=== PATIENT | male | born 1980 | race Caucasian/White ===

== ENCOUNTER 2017-07-29 21:39 | Emergency (ER) | payer SELFPAY ==
[~2017-07-29] VITALS: Ht 190.5 cm; Wt 127.0 kg
[~2017-07-29 21:39] MED LIST: HCT25T PO
[2017-07-29] MEDS ORDERED: TETANUS,DIPTH,PERTUSS P/F (BOOSTRIX) 0.5 ML VIAL IM STA (22:11)
[2017-07-29] MEDS ORDERED: RX-MUPIROCIN (BACTROBAN) 2% OINT 22 GM TUBE TOP STA (22:13)
[2017-07-29] MEDS ORDERED: AUGMENTIN 875 MG TAB (AMOXICILLIN/CLAVULANATE) PO SCH (22:15)
[2017-07-29] MEDS ORDERED: FLUORESCEIN (FLUOR-I-STRIPS) 1 MG STRP ONE (22:23)
[2017-07-29] MEDS ORDERED: TETRACAINE 0.5% OPHTH SOLN 4 ML BTL (SINGLE DOSE ONLY) ONE (22:23)
[2017-07-29] MEDS ORDERED: BSS 15 ML ONE (22:24)
[2017-07-29] MEDS ORDERED: PHEN37.53 PO (22:35)
[2017-07-29] MEDS ORDERED: TOPI50TA13 (22:35)
[2017-07-29] MEDS ORDERED: METO-395 (22:35)
[2017-07-29] MEDS ORDERED: OMEP20CA12 (22:35)
[2017-07-29] MEDS ORDERED: RX-CIPROFLOXACIN (CILOXAN) 0.3% OP SOLN 2.5 ML OP STA (22:40)
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
[2017-07-29] MEDS ORDERED: AMOX-358 PO (22:51)
[2017-07-29] MEDS ORDERED: MUPI1OIN6 TP (22:51)
[2017-07-29 23:00] VITALS: BP 125/96
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
--- OUTSIDE RECORDS SUMMARY | 2017-07-30 09:51 | XMS REPORT ---
Author Author EVA CAO Organization [employer] Address Unknown Phone Unavailable Care Team Providers Care Employee Relations Administrator Name Role Phone EVA CAO CP Unavailable Allergies No Known Allergies Problems Problem Type Condition Code Onset Dates Condition Status Problem Obese E66.9 Active Problem Family history of diabetes mellitus Z83.3 Active Problem HTN (hypertension) I10 Active Problem GERD (gastroesophageal reflux disease) 530.81 Active Medications Medication Code System Code Instructions Start Date End Date Status Dosage Omeprazole [facility] 83109274198 20 MG Orally Once a day 1 tablet Results No Known Results Summary Purpose [employer] Submission
--- OUTSIDE RECORDS SUMMARY | 2017-07-30 09:51 | XMS REPORT ---
Author EVA Couch Organization [employer] Address Unknown Phone Unavailable Care Team Providers Care Edi Coordinator Name Role Phone EVA CAO CP Unavailable Allergies, Adverse Reactions, Alerts Substance Reaction Event Type Chantix 1 Mg Tablet facial swelling Non Drug Allergy Problems Problem Type Condition Code Onset Dates Condition Status Problem Obese E66.9 Active Problem Family history of diabetes mellitus Z83.3 Active Problem HTN (hypertension) I10 Active Problem GERD (gastroesophageal reflux disease) 530.81 Active Assessment Morbid obesity due to excess calories E66.01 Active Medications Medication Code System Code Instructions Start Date End Date Status Dosage Metformin HCl [facility] [address]-20 500 MG Orally 3 times a day September 19, 2015 1 tablet Omeprazole [facility] 90275388031 20 MG Orally Once a day 1 tablet Metoprolol Succinate ER [facility] [address]-03 100 MG Orally Once a day 1 tablet Procedures Procedure Coding System Code Date Office Visit, Est Pt., Level 3 CPT-4 68945 Dec 09, 2015 Vital Signs Date/Time: Dec 09, 2015 Cardiac Monitoring Heart Rate 92 bpm Weight 381 lbs Height 73 in BMI 50.26 Index Blood Pressure Diastolic 90 mmHg Blood Pressure Systolic 140 mmHg Results No Known Results Summary Purpose [employer] Submission
--- OUTSIDE RECORDS SUMMARY | 2017-07-30 09:51 | XMS REPORT ---
Author Author ANSON BOYKIN Organization [employer] Address Unknown Phone Unavailable Care Team Providers Care Tail Board Man Name Role Phone ANSON BOYKIN CP Unavailable Allergies No Known Allergies Problems Problem Type Condition Code Onset Dates Condition Status Problem Routine general medical examination at health care facility V70.0 Active Problem Acute sinusitis, unspecified 461.9 Active Problem Acute bronchitis 466.0 Active Problem Hypertension 401.9 Active Problem Headache 784.0 Active Problem GERD (gastroesophageal reflux disease) 530.81 Active Problem Counseling on substance use and abuse V65.42 Active Problem Essential hypertension, benign 401.1 Active Problem Obesity, unspecified 278.00 Active Problem Umbilical hernia without mention of obstruction or gangrene 553.1 Active Medications Medication Code System Code Instructions Start Date End Date Status Dosage Omeprazole [facility] [address]-02 20 MG Orally Once a day Oct 14, 2014 1 tablet Metoprolol Succinate ER [facility] [address]-83 50 MG Orally Once a day September 06, 2014 1 tablet Results No Known Results Summary Purpose [employer] Submission
--- OUTSIDE RECORDS SUMMARY | 2017-07-30 09:51 | XMS REPORT ---
Author Author EVA CAO [facility] Address [address] [place] [address] Care Team Providers Care Recoating Machine Operator Name Role Phone NASH EVA Unavailable PROBLEMS Type Condition ICD9-CM Code [id number] Code Onset Dates Condition Status SNOMED Code Assessment Ingrowing nail L60.0 Oct, Active 791743826 Problem HTN (hypertension) I10 Active 45848265 Problem Obese E66.9 Active 017795760 Assessment Essential hypertension I10 Oct, Active 67254736 Assessment Morbid obesity due to excess calories E66.01 Oct, Active 392536282 Problem Family history of diabetes mellitus Z83.3 Active 686103771 Problem GERD (gastroesophageal reflux disease) 530.81 Active 370845257 ALLERGIES Substance Reaction Event Type Date Status Chantix 1 Mg Tablet facial swelling Non Drug Allergy Oct, Active SOCIAL HISTORY No smoking Hx information available PLAN OF CARE VITAL SIGNS Height 73 in 2015-10-17 Weight 384.1 lbs 2015-10-17 Heart Rate 108 bpm 2015-10-17 Respiratory Rate 20 2015-10-17 BMI 50.67 kg/m2 2015-10-17 Blood pressure systolic 144 mmHg 2015-10-17 Blood pressure diastolic 98 mmHg 2015-10-17 MEDICATIONS Medication Instructions Dosage Frequency Start Date End Date Duration Status Metoprolol Succinate ER 100 MG Orally Once a day 1 tablet 24h 30 Active Omeprazole 20 MG Orally Once a day 1 tablet 24h 30 Active Metformin HCl 500 MG Orally Twice a day 1 1/2 tablets 12h Sep, Active RESULTS No Results PROCEDURES Procedure Date Ordered Related Diagnosis Body Site Office Visit, Est Pt., Level 3 Oct 17, 2015 IMMUNIZATIONS No Known Immunizations
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
--- OUTSIDE RECORDS SUMMARY | 2017-07-30 09:51 | XMS REPORT ---
Author EVA Couch Organization [employer] Address Unknown Phone Unavailable Care Team Providers Care Terminal Worker Name Role Phone EVA CAO CP Unavailable [...] Date End Date Status Dosage Metformin HCl [facility] [address]-87 500 MG Orally Twice a day September 19, 2015 1 tablet with meals Omeprazole [facility] [id number] 20 MG Orally Once a day 1 tablet Metoprolol Succinate ER [facility] [id number] 50 MG Orally Once a day 1 tablet Procedures Procedure Coding System Code Date Office Visit, Est Pt., Level 3 CPT-4 19475 September 19, 2015 Vital Signs Date/Time: September 19, 2015 Cardiac Monitoring Heart Rate 88 bpm Weight 383.9 lbs Height 73 in Blood Pressure Diastolic 106 mmHg Blood Pressure Systolic 165 mmHg Results No Known Results Summary Purpose [employer] Submission
--- OUTSIDE RECORDS SUMMARY | 2017-07-30 09:52 | XMS REPORT ---
Author Author EVA CAO Organization [facility] Address [address] [place] [address] Care Team Providers Care Organization Development Consultant Name Role Phone NASHEVA Unavailable PROBLEMS Type Condition ICD9-CM Code [id number] Code Onset Dates Condition Status SNOMED Code Problem Morbid obesity due to excess calories E66.01 Active 471595839 Problem Obese E66.9 Active 250961356 Problem GERD (gastroesophageal reflux disease) 530.81 Active 751468141 Problem Family history of diabetes mellitus Z83.3 Active 044359934 Problem HTN (hypertension) I10 Active 78337104 ALLERGIES Substance Reaction Event Type Date Status Chantix 1 Mg Tablet facial swelling Non Drug Allergy Sep, Active ENCOUNTERS Encounter Location Date Diagnosis [facility] [id number] [place] [address]20- 6808 Jun, [facility] [id number] [place] [address] 63816- 5618 Nov, Obese E66.9 [facility] [id number] [place] [address] 92010- 1049 Oct, Morbid obesity due to excess calories E66.01 [facility] [id number] [place] [address] 79242- 1927 Sep, Morbid obesity due to excess calories E66.01 ; HTN ( hypertension) I10 and Obese E66.9 [facility] [id number] [place] [address] 52814- 5456 Aug, HTN (hypertension) I10 and Obese E66.9 [facility] [id number] [place] [address] 17084 -5347 July, [facility] [id number] [place] [address] 75139- 9672 Jan, [facility] [address] [address]- 9974 Nov, Morbid obesity due to excess calories E66.01 [facility] [address] [place] [address] 26893- 3333 Oct, Essential hypertension I10 ; Morbid obesity due to excess calories E66.01 and Ingrowing nail L60.0 [facility] [id number] [place] [address] 07605- 8991 Sep, Morbid obesity due to excess calories E66.01 [facility] [id number] [place] [address] 42259- 5563 July, [facility] [id number] [place] [address] 63227- 8177 May, [facility] [id number] [place] [address] 89744- 8864 May, [facility] [id number] [place] [address] 70118- 3013 May, [facility] [id number] [place] [address] 77491- 1774 May, Obese E66.9 and HTN (hypertension) I10 [facility] [id number] [place] [address] 21673- 3700 May, GERD (gastroesophageal reflux disease) 530.81 ; HTN ( hypertension) I10 ; Obese E66.9 and Family history of diabetes mellitus Z83.3 [facility] [address] [address]- 5139 Dec, [facility] [id number] [place] [address] 82185- 8436 Oct, Hypertension 401.9 ; Obesity, unspecified 278.00 and GERD ( gastroesophageal reflux disease) 530.81 [facility] [id number] [place] [address] 77877- 1365 Sep, [facility] [address] [facility] [id number] [address] Aug, Nausea & vomiting 787.01 ; Headache 784.0 and Hypertension 401.9 [facility] [address] [facility] [id number] [place] [address]- 0[address] 14 Jun, 2014 [facility] [address] [place] [address]- 6720 Jun, [facility] [address] [facility] [id number] [place] [address]- 8453 Feb, [facility] [id number] [place] [address], [place] [address]- 8771 Feb, [facility] [id number] [place] [address]- 9675 Dec, [facility] [address] [address]- 1622 Dec, [facility] [address] [address]- 1165 Nov, [facility] [id number] [place] [address]- 8037 Nov, [facility] [id number] [place] [address]- 3619 July, [facility] [id number] [place] [address]- 1515 July, [facility] [id number] [address]- 2578 Jun, [facility] [address] [address]- 7244 May, [facility] [address] [address]- 1111 Mar, [facility] [id number] [address]- 4835 Mar, [facility] [address] [facility] [id number] [place] [address]- 4262 Mar, IMMUNIZATIONS No Known Immunizations SOCIAL HISTORY Never Assessed REASON FOR VISIT OBESITY- michael Salcedo RN PLAN OF CARE Activity Details Follow Up 4 Weeks Reason:obesity VITAL SIGNS Height 73 in 2016-09-13 Weight 383 lbs 2016-09-13 Temperature 98.5 degrees Fahrenheit 2016-09-13 Heart Rate 80 bpm 2016-09-13 Respiratory Rate 20 2016-09-13 BMI 50.53 kg/m2 2016-09-13 Blood pressure systolic 130 mmHg 2016-09-13 Blood pressure diastolic 90 mmHg 2016-09-13 MEDICATIONS Medication Instructions Dosage Frequency Start Date End Date Duration Status Omeprazole 20 mg Orally Once a day 1 tablet 24h Active Metoprolol Succinate ER 100 mg Orally Once a day 1 tablet 24h Active Contrave 8-90 MG Orally Twice a day 2 tablets 12h Active RESULTS Name Result Date Reference Range TSH 2016-09-13 TSH 1.370 0.450-4.500 CBC 2016-09-13 WBC 6.6 3.4-10.8 RBC 5.34 4.14-5.80 Hemoglobin 15.4 12.6-17.7 Hematocrit 46.1 37.5-51.0 MCV 86 79-97 MCH 28.8 26.6-33.0 MCHC 33.4 31.5-35.7 RDW 14.2 12.3-15.4 Platelets 290 150-379 Neutrophils 64 Lymphs 28 Monocytes 7 Eos 1 Basos 0 Neutrophils (Absolute) 4.2 1.4-7.0 Lymphs (Absolute) 1.8 0.7-3.1 Monocytes(Absolute) 0.5 0.1-0.9 Eos (Absolute) 0.1 0.0-0.4 Baso (Absolute) 0.0 0.0-0.2 Immature Granulocytes 0 Immature Grans (Abs) 0.0 0.0-0.1 LIPID PANEL 2016-09-13 Cholesterol, Total 164 100-199 Triglycerides 120 0-149 HDL Cholesterol 41 >39 VLDL Cholesterol Bruce 24 5-40 LDL Cholesterol Calc 99 0-99 CMP 2016-09-13 Glucose, Serum 102 65-99 BUN 12 6-20 Creatinine, Serum 0.95 0.76-1.27 eGFR If NonAfricn Am 105 >59 eGFR If Africn Am 121 >59 BUN/Creatinine Ratio 13 9-20 Sodium, Serum 137 134-144 Potassium, Serum 4.6 3.5-5.2 Chloride, Serum 99 96-106 Carbon Dioxide, Total 20 18-29 Calcium, Serum 9.5 8.7-10.2 Protein, Total, Serum 7.9 6.0-8.5 Albumin, Serum 4.5 3.5-5.5 Globulin, Total 3.4 1.5-4.5 A/G Ratio 1.3 1.2-2.2 Bilirubin, Total 1.1 0.0-1.2 Alkaline Phosphatase, S 97 39-117 AST (SGOT) 23 0-40 ALT (SGPT) 36 0-44 PROCEDURES Procedure Date Ordered Result Body Site ASSAY THYROID STIM HORMONE September 13, 2016 LIPID PANEL September 13, 2016 COMPLETE CBC W/AUTO DIFF WBC September 13, 2016 VENIPUNCT, ROUTINE* September 13, 2016 COMPREHEN METABOLIC PANEL September 13, 2016 INSTRUCTIONS MEDICATIONS ADMINISTERED No Known Medications MEDICAL (GENERAL) HISTORY Type Description Date Medical History hypertension Medical History migraines Medical History [place] at 17 yo from inhaling Freon Medical History paratenitis Surgical History hernia Hospitalization History surgery Hospitalization History [place] Hospitalization History paratenitis Hospitalization History Heart attack Coco Singh 17 yoa
--- OUTSIDE RECORDS SUMMARY | 2017-07-30 09:52 | XMS REPORT | Continuity of Care Document ---
Author Author [facility] Address Unknown Phone Unavailable Allergies Active Description Code Type Severity Reaction Onset Reported/Identified Relationship to Patient Clinical Status Yes CHANTIX STARTING MONTH BOX MODERATE OTHER Yes No Known Drug Allergies [id number] Drug Allergy Unknown N/A 06/05/2012 Yes Chantix 1 mg tablet Drug Allergy N/A N/A 11/12/2013 Medications Medication Packaging Start Date Stop Date Route Dosage Sig KETOROLAC VIAL INJ 30 MG/CC (TORADOL VIAL) MG 05/22/2017 05/22/2017 PRN ONCE ONDANSETRON VIAL INJ 4 MG/2CC (ZOFRAN 2CC VIAL) MG 05/22/2017 05/22/2017 PRN ONCE Hydromorphone inj 2mg/cc vial (Dilaudid) MG 05/22/2017 05/22/2017 PRN ONCE NORMAL SALINE 1000CC IV BAG INJ 0.9 % (NS 1000CC IV BAG) ml 05/22/2017 05/22/2017 [id number]&[id number] Problems Date Dx Coded Attending Type Code Diagnosis Diagnosed By 03/21/2012 CEDRIC VENCES DO 401.1 HYPERTENSION, BENIGN ESSENTIAL 03/21/2012 CEDRIC VENCES DO 553.1 UMBILICAL HERNIA WITHOUT OBSTRUCTION OR GANGRENE 03/21/2012 CEDRIC VENCES DO V65.42 COUNSELING - SMOKING CESSATION 03/21/2012 401.1 HYPERTENSION, BENIGN ESSENTIAL 03/21/2012 553.1 UMBILICAL HERNIA WITHOUT OBSTRUCTION OR GANGRENE 03/21/2012 V65.42 COUNSELING - SMOKING CESSATION 03/21/2012 401.1 HYPERTENSION, BENIGN ESSENTIAL 03/21/2012 553.1 UMBILICAL HERNIA WITHOUT OBSTRUCTION OR GANGRENE 03/21/2012 V65.42 COUNSELING - SMOKING CESSATION 03/21/2012 401.1 HYPERTENSION, BENIGN ESSENTIAL 03/21/2012 553.1 UMBILICAL HERNIA WITHOUT OBSTRUCTION OR GANGRENE 03/21/2012 V65.42 COUNSELING - SMOKING CESSATION 03/21/2012 401.1 HYPERTENSION, BENIGN ESSENTIAL 03/21/2012 553.1 UMBILICAL HERNIA WITHOUT OBSTRUCTION OR GANGRENE 03/21/2012 V65.42 COUNSELING - SMOKING CESSATION 03/21/2012 CHHAYA WORLEY APRN S 401.1 HYPERTENSION, BENIGN ESSENTIAL 03/21/2012 CHHAYA WORLEY APRN S 553.1 UMBILICAL HERNIA WITHOUT OBSTRUCTION OR GANGRENE 03/21/2012 CHHAYA WORLEY APRN S V65.42 COUNSELING - SMOKING CESSATION 03/21/2012 VENCES DO CEDRIC K 401.1 HYPERTENSION, BENIGN ESSENTIAL 03/21/2012 VENCES DO, CEDRIC K 553.1 UMBILICAL HERNIA WITHOUT OBSTRUCTION OR GANGRENE 03/21/2012 VENCES DO CEDRIC K V65.42 COUNSELING - SMOKING CESSATION 03/21/2012 RU DO CEDRIC K 401.1 HYPERTENSION, BENIGN ESSENTIAL 03/21/2012 VENCES DO CEDRIC K 553.1 UMBILICAL HERNIA WITHOUT OBSTRUCTION OR GANGRENE 03/21/2012 RU VERONICA CEDRIC K V65.42 COUNSELING - SMOKING CESSATION 06/11/2012 Ot 553.20 VENTRAL HERNIA NOS 07/03/2012 V70.0 ROUTINE GENERAL MEDICAL EXAMINATION AT A HEALTH CARE FACILITY 07/03/2012 V70.0 ROUTINE GENERAL MEDICAL EXAMINATION AT A HEALTH CARE FACILITY 07/03/2012 V70.0 ROUTINE GENERAL MEDICAL EXAMINATION AT A HEALTH CARE FACILITY 07/03/2012 CHHAYA WORLEY APRN V70.0 ROUTINE GENERAL MEDICAL EXAMINATION AT A HEALTH CARE FACILITY 07/03/2012 RU VERONICA CEDRIC K V70.0 ROUTINE GENERAL MEDICAL EXAMINATION AT A HEALTH CARE FACILITY 07/03/2012 RU VERONICA CEDRIC K V70.0 ROUTINE GENERAL MEDICAL EXAMINATION AT A HEALTH CARE FACILITY 11/12/2013 CHHAYA WORLEY APRN S 784.0 HEADACHE 11/12/2013 VENCES DO CEDRIC K 784.0 HEADACHE 11/12/2013 VENCES DO, CEDRIC K 784.0 HEADACHE 12/14/2013 VENCES DO CEDRIC K 278.00 OBESITY UNSPECIFIED 12/14/2013 VENCES DO, CEDRIC K 278.00 OBESITY UNSPECIFIED 02/22/2014 VENCES DO CEDRIC K 461.9 SINUSITIS ACUTE 02/22/2014 VENCES DO CEDRIC K 466.0 BRONCHITIS, ACUTE 06/30/2014 Ot 553.20 06/30/2014 Ot V72.63 06/30/2014 Ot V72.81 06/30/2014 Ot V74.8 08/20/2014 Ot 553.20 08/20/2014 Ot V72.63 08/20/2014 Ot V72.81 08/20/2014 Ot V74.8 03/11/2015 Ot 553.20 03/11/2015 Ot V72.63 03/11/2015 Ot V72.81 03/11/2015 Ot V74.8 03/14/2015 Ot 553.20 03/14/2015 Ot V72.63 03/14/2015 Ot V72.81 03/14/2015 Ot V74.8 05/02/2015 Ot 553.20 05/02/2015 Ot V72.63 05/02/2015 Ot V72.81 05/02/2015 Ot V74.8 11/30/2015 Ot 553.20 VENTRAL HERNIA NOS 11/30/2015 Ot V72.63 PRE- PROCEDURAL LABORATORY EXAMINATION 11/30/2015 Ot V72.81 EXAM-PRE- OPERATIVE CARDIOVASCULAR 11/30/2015 Ot V74.8 SCREEN- BACTERIAL DIS NEC 02/26/2016 Ot 553.20 VENTRAL HERNIA NOS 02/26/2016 Ot V72.63 PRE- PROCEDURAL LABORATORY EXAMINATION 02/26/2016 Ot V72.81 EXAM-PRE- OPERATIVE CARDIOVASCULAR 02/26/2016 Ot V74.8 SCREEN- BACTERIAL DIS NEC 2016 Ot 553.20 VENTRAL HERNIA NOS 2016 Ot V72.63 PRE- PROCEDURAL LABORATORY EXAMINATION 2016 Ot V72.81 EXAM-PRE- OPERATIVE CARDIOVASCULAR 2016 Ot V74.8 SCREEN- BACTERIAL DIS NEC 01/03/2017 Ot 553.20 VENTRAL HERNIA NOS 01/03/2017 Ot V72.63 PRE- PROCEDURAL LABORATORY EXAMINATION 01/03/2017 Ot V72.81 EXAM-PRE- OPERATIVE CARDIOVASCULAR 01/03/2017 Ot V74.8 SCREEN- BACTERIAL DIS NEC 01/17/2017 Ot 553.20 VENTRAL HERNIA NOS 01/17/2017 Ot V72.63 PRE- PROCEDURAL LABORATORY EXAMINATION 01/17/2017 Ot V72.81 EXAM-PRE- OPERATIVE CARDIOVASCULAR 01/17/2017 Ot V74.8 SCREEN- BACTERIAL DIS NEC 05/22/2017 JUANI LOPEZ 591 HYDRONEPHROSIS 05/22/2017 JUANI LOPEZ N13.2 HYDRONEPHROSIS WITH RENAL AND URETERAL CALCULOUS OBSTRUCTION 06/24/2017 Ot 553.20 VENTRAL HERNIA NOS 06/24/2017 Ot V72.63 PRE- PROCEDURAL LABORATORY EXAMINATION 06/24/2017 Ot V72.81 EXAM-PRE- OPERATIVE CARDIOVASCULAR 06/24/2017 Ot V74.8 SCREEN- BACTERIAL DIS NEC 07/19/2017 Ot 553.20 VENTRAL HERNIA NOS 07/19/2017 Ot V72.63 PRE- PROCEDURAL LABORATORY EXAMINATION 07/19/2017 Ot V72.81 EXAM-PRE- OPERATIVE CARDIOVASCULAR 07/19/2017 Ot V74.8 SCREEN- BACTERIAL DIS NEC Procedures Code Description Performed By Performed On [place] 03/21/2012 Results Test Result Range CBC With Differential/Platelet - 09/13/16 11:48 WBC 6.6 x10E3/uL 3.4-10.8 RBC 5.34 x10E6/uL 4.14-5.80 Hemoglobin 15.4 g/dL 12.6-17.7 Hematocrit 46.1 % 37.5-51.0 MCV 86 fL 79-97 MCH 28.8 pg 26.6-33.0 MCHC 33.4 g/dL 31.5-35.7 RDW 14.2 % 12.3-15.4 Platelets 290 x10E3/uL 150-379 Neutrophils 64 % Lymphs 28 % Monocytes 7 % Eos 1 % Basos 0 % Neutrophils (Absolute) 4.2 x10E3/uL 1.4-7.0 Lymphs (Absolute) 1.8 x10E3/uL 0.7-3.1 Monocytes(Absolute) 0.5 x10E3/uL 0.1-0.9 Eos (Absolute) 0.1 x10E3/uL 0.0-0.4 Baso (Absolute) 0.0 x10E3/uL 0.0-0.2 Immature Granulocytes 0 % Immature Grans (Abs) 0.0 x10E3/uL 0.0-0.1 Comp. Metabolic Panel (14) - 09/13/16 11:48 Glucose, Serum 102 mg/dL 65-99 BUN 12 mg/dL 6-20 Creatinine, Serum 0.95 mg/dL 0.76-1.27 eGFR If NonAfricn Am 105 mL/min/1.73 >59 eGFR If Africn Am 121 mL/min/1.73 >59 BUN/Creatinine Ratio 13 9-20 Sodium, Serum 137 mmol/L 134-144 Potassium, Serum 4.6 mmol/L 3.5-5.2 Chloride, Serum 99 mmol/L 96-106 Carbon Dioxide, Total 20 mmol/L 18-29 Calcium, Serum 9.5 mg/dL 8.7-10.2 Protein, Total, Serum 7.9 g/dL 6.0-8.5 Albumin, Serum 4.5 g/dL 3.5-5.5 Globulin, Total 3.4 g/dL 1.5-4.5 A/G Ratio 1.3 1.2-2.2 Bilirubin, Total 1.1 mg/dL 0.0-1.2 Alkaline Phosphatase, S 97 IU/L 39-117 AST (SGOT) 23 IU/L 0-40 ALT (SGPT) 36 IU/L 0-44 Lipid Panel - 09/13/16 11:48 Cholesterol, Total 164 mg/dL 100-199 Triglycerides 120 mg/dL 0-149 HDL Cholesterol 41 mg/dL >39 VLDL Cholesterol Bruce 24 mg/dL 5-40 LDL Cholesterol Calc 99 mg/dL 0-99 TSH - 09/13/16 11:48 TSH 1.370 uIU/mL 0.450-4.500 Urine Culture - 05/19/17 17:07 PRELIM CULTURE RESULTS No Growth 24 hours FINAL CULTURE RESULTS No Growth 48 hours CULTURE SOURCE URINE CULTURE BMP - 05/22/17 06:19 Anion Gap 18 6-14 BUN 18 mg/dL 5-25 Calcium 9.7 mg/dL 8.3-10.4 Chloride 105 mmol/L 95-114 CO2 21 mEq/L 22-33 Creat 1.31 mg/dL 0.50-1.50 eGFR 62 mL/min/1.73m2 >59 Glucose 134 mg/dL 70-110 Osmo 293 280-295 Potassium 4.2 mmol/L 3.5-5.3 Sodium 140 mmol/L 134-148 Encounters ACCT No. Visit Date/Time Discharge Status Pt. Type Provider Facility Loc./Unit Complaint [id number] 02/22/2014 10:49:00 02/22/2014 23:59:59 CLS Outpatient CEDRIC VENCES DO [id number] 12/14/2013 10:55:00 12/14/2013 23:59:59 CLS Outpatient RU VERONICA CEDRIC Mix [id number] 11/12/2013 12:25:00 11/12/2013 23:59:59 CLS Outpatient CHHAYA WORLEY APRN [id number] 04/07/2012 16:40:00 04/07/2012 23:59:59 CLS Outpatient [id number] 03/21/2012 08:55:00 03/21/2012 23:59:59 CLS Outpatient RU VERONICA CEDRIC K [id number] 07/16/2012 09:17:00 Document Registration [id number] 07/14/2012 13:46:00 Document Registration [id number] 07/03/2012 07:56:00 Document Registration [id number] 07/18/2017 08:40:00 07/18/2017 23:59:59 CLS Outpatient EVA CAO APRN [facility] [id number] 05/22/2017 06:08:00 05/22/2017 08:26:00 DIS Outpatient LAFAYETTE [facility] [id number] 05/19/2017 17:07:00 05/19/2017 23:59:00 DIS Outpatient Fernando Espinal [id number] 05/22/2017 06:22:26 Document Registration [id number] 06/11/2012 08:43:00 Document Registration [id number] 06/05/2012 08:46:00 Document Registration [id number] 09/14/2016 08:36:00 Document Registration
== END 2017-07-29 23:00 | disposition home or self-care (01) ==
LOC: EDUNIT# 21:39 → ER 21:42
DX: S41.152A Open bite of left upper arm, initial encounter (principal); S61.250A Open bite of right index finger without damage to nail, initial encounter; S05.12XA Contusion of eyeball and orbital tissues, left eye, initial encounter; S05.01XA Injury of conjunctiva and corneal abrasion without foreign body, right eye, initial encounter; H11.31 Conjunctival hemorrhage, right eye; I10 Essential (primary) hypertension; Z23 Encounter for immunization; Z87.891 Personal history of nicotine dependence; Y04.1XXA Assault by human bite, initial encounter
CPT/HCPCS: 70450; 70486; 90471; 90715